=== PATIENT | female | born 1945 | race Caucasian/White ===

== ENCOUNTER 2021-04-08 20:04 | Inpatient (IN) | payer MEDICARE ==
[~2021-04-08] VITALS: Ht 154.9 cm; Wt 97.0 kg
[2021-04-08] MEDS ORDERED: normal saline 1000ML IV soln IV ONE (20:20)
[2021-04-08 20:44] LABS: BASOPHILS % (AUTO) 0.3 % (0-1); EOSINOPHILS % (AUTO) 0 % (0-6); HEMATOCRIT 42.7 % (35.0-45.0); HEMOGLOBIN 13.8 g/dl (12.0-16.0); LYMPHOCYTES # (AUTO) 0.7 X10'3 (1.1-4.8); LYMPHOCYTES % (AUTO) 6.6 % (21-51); MEAN CORPUSCULAR HEMOGLOBIN 33.3 PG (27.0-31.0); MEAN CORPUSCULAR HGB CONC 32.3 g/dL (33.0-36.5); MEAN CORPUSCULAR VOLUME 103.2 FL (78-98); MEAN PLATELET VOLUME 8.2 FL (7.4-10.4); MONOCYTES # (AUTO) 0.7 X10'3 (0-0.9); MONOCYTES % (AUTO) 6.1 % (2-12); NEUTROPHILS # (AUTO) 9.4 X10'3 (1.8-7.7); PLATELET COUNT 208 X10'3 (140-440); RED BLOOD COUNT 4.14 X10'6 (4.20-5.60); RED CELL DISTRIBUTION WIDTH 14.5 % (11.5-14.5); WHITE BLOOD COUNT 10.8 X10'3 (4.5-11.0)
[2021-04-08] MEDS ORDERED: temazepam 15mg capsule PO PRN (21:00)
[2021-04-08 21:13] LABS: CLARITY,URINE CLOUDY (Clear); COLOR,URINE YELLOW (Yellow); GLUCOSE, URINE NEGATIVE (Neg); KETONES,URINE 40 mg/dl (Neg); LEUKOCYTE ESTERASE ,URINE MODERATE (Neg); NITRITES, URINE NEGATIVE (Neg); OCCULT BLOOD,URINE LARGE (Neg); PH,URINE 5.5 (4.8-8.0); PROTEIN,URINE 100 mg/dl (Neg)
--- NOTE | 2021-04-08 21:14 | NUR ---
LYDIA ([facility]) - [phone]
[2021-04-08 21:22] LABS: ALANINE AMINOTRANSFERASE 52 U/L (12-78); ALBUMIN 3.3 G/DL (3.4-5.0); ALBUMIN/GLOBULIN RATIO 1.1 (1.1-1.5); ALKALINE PHOSPHATASE 77 IU/L (46-116); ANION GAP 16 (8-16); ASPARTATE AMINO TRANSFERASE 74 U/L (10-37); BILIRUBIN,TOTAL 1.1 MG/DL (0.1-1.0); BLOOD UREA NITROGEN 52 MG/DL (7-18); BUN/CREATININE RATIO 55.9 (6.6-38.0); CALCIUM 8.3 MG/DL (8.5-10.1); CHLORIDE 119 MMOL/L (99-107); CREATININE 0.93 MG/DL (0.40-0.90); GLUCOSE 128 MG/DL (70-104); POTASSIUM 3.6 MMOL/L (3.5-5.1); TOTAL CARBON DIOXIDE 23.8 MMOL/L (24-32); TOTAL PROTEIN 6.4 G/DL (6.4-8.2); eGFR 58 ML/MIN
[2021-04-08 21:24] LABS: UA COLLECTION TYPE NON-SPECIFIED; URINE AMPHETAMINE SCREEN NEGATIVE (Neg); URINE BARBITUATE SCREEN NEGATIVE (Neg); URINE BENZODIAZEPINES SCREEN NEGATIVE (Neg); URINE CANNABINOID SCREEN NEGATIVE (Neg); URINE COCAINE SCREEN NEGATIVE (Neg); URINE METHADONE SCREEN NEGATIVE (Neg); URINE OPIATE SCREEN NEGATIVE (Neg); URINE PHENCYCLIDINE SCREEN NEGATIVE (Neg)
[2021-04-08 21:24] LABS: CREATINE KINASE 2130 U/L (26-192)
[2021-04-08 21:26] LABS: ETHANOL < 0.010 GM/DL (0.0-0.010)
[2021-04-08 21:28] LABS: SODIUM 159 MMOL/L (135-145)
[2021-04-08 21:29] LABS: BACTERIA,URINE NONE SEEN /HPF (Neg); MUCUS STRANDS MODERATE /LPF (Neg); SQUAMOUS EPITHELIAL CELL,UR NONE SEEN /LPF (FEW); WBC,URINE 50-100 /HPF (0-4)
[2021-04-08] MEDS ORDERED: acetaminophen 325mg tablet PO PRN ×2 (22:05)
[2021-04-08] MEDS ORDERED: ondansetron/PF 4mg/2ml inj IV PRN (22:05)
[2021-04-08] MEDS ORDERED: morphine 2 MG/ML inj. syringe IV PRN (22:05)
[2021-04-08] MEDS ORDERED: potassium Cl 20 mEq SR tablet PO PRN (22:05)
[2021-04-08] MEDS ORDERED: magnesium 2GM in 50ml NS 50 ML IV PRN (22:05)
[2021-04-08] MEDS ORDERED: magnesium 4gm in 100ml NS 100 ML IV PRN (22:05)
[2021-04-08] MEDS ORDERED: HYDROcodone/acetaminophen 5mg/325mg tablet PO PRN (22:05)
[2021-04-08] MEDS ORDERED: potassium Cl 40MEQ/1/2NS 520ml 520 ML IV PRN ×2 (22:05)
[2021-04-08] MEDS: normal saline 1000ml 1,000 ML IV SCH (22:05)
[2021-04-08] MEDS ORDERED: magnesium Cl slow-release 64mg tablet PO PRN (22:05)
[2021-04-08] MEDS ORDERED: CefTRIAXone 2gm/D5W 50ml BAG 50 ML IV ONE (22:15)
[2021-04-08] MEDS ORDERED: SYN0.088T PO (22:56)
[2021-04-08] MEDS ORDERED: LISI20TA28 PO (22:56)
[2021-04-08] MEDS ORDERED: ATOR10TA87 PO (22:56)
[2021-04-08] MEDS ORDERED: VIT1TABL66 (22:58)
[2021-04-08] MEDS ORDERED: ASPI-1265 PO (22:58)
[2021-04-08] MEDS ORDERED: LORazepam 2 mg/ml vial IV PRN (23:35)
[2021-04-08] MEDS ORDERED: LORazepam 1 MG tablet PO PRN (23:35)
[2021-04-08 23:46] LABS: LIPASE < 50 U/L (73-393)
[2021-04-09] MEDS: potassium CL 20mEq in D5-1/2NS 1,000 ML IV SCH ×2 (00:28→14:01)
[2021-04-09 01:21] LABS: BASOPHILS % (AUTO) 0.3 % (0-1); EOSINOPHILS % (AUTO) 0 % (0-6); HEMOGLOBIN 12.5 g/dl (12.0-16.0); LYMPHOCYTES # (AUTO) 0.9 X10'3 (1.1-4.8); LYMPHOCYTES % (AUTO) 8.5 % (21-51); MEAN CORPUSCULAR HEMOGLOBIN 33.6 PG (27.0-31.0); MEAN CORPUSCULAR HGB CONC 32.9 g/dL (33.0-36.5); MEAN CORPUSCULAR VOLUME 102.2 FL (78-98); MEAN PLATELET VOLUME 7.9 FL (7.4-10.4); MONOCYTES # (AUTO) 0.6 X10'3 (0-0.9); MONOCYTES % (AUTO) 5.8 % (2-12); NEUTROPHILS # (AUTO) 9.1 X10'3 (1.8-7.7); NEUTROPHILS % (AUTO) 85.4 % (42-75); PLATELET COUNT 189 X10'3 (140-440); RED BLOOD COUNT 3.71 X10'6 (4.20-5.60); RED CELL DISTRIBUTION WIDTH 14.6 % (11.5-14.5); WHITE BLOOD COUNT 10.7 X10'3 (4.5-11.0)
[2021-04-09 01:50] LABS: ALANINE AMINOTRANSFERASE 51 U/L (12-78); ALBUMIN 2.7 G/DL (3.4-5.0); ALBUMIN/GLOBULIN RATIO 0.9 (1.1-1.5); ALKALINE PHOSPHATASE 53 IU/L (46-116); ASPARTATE AMINO TRANSFERASE 76 U/L (10-37); BILIRUBIN,TOTAL 0.7 MG/DL (0.1-1.0); BLOOD UREA NITROGEN 46 MG/DL (7-18); CALCIUM 7.6 MG/DL (8.5-10.1); CREATININE 0.73 MG/DL (0.40-0.90); GLUCOSE 124 MG/DL (70-104); MAGNESIUM 2.4 MG/DL (1.5-2.4); POTASSIUM 3.4 MMOL/L (3.5-5.1); TOTAL CARBON DIOXIDE 24.2 MMOL/L (24-32); TOTAL PROTEIN 5.6 G/DL (6.4-8.2); eGFR 77 ML/MIN
[2021-04-09 01:53] LABS: ANION GAP 12 (8-16); CHLORIDE 121 MMOL/L (99-107)
[2021-04-09 01:57] LABS: SODIUM 157 MMOL/L (135-145)
[2021-04-09] MEDS: normal saline 1000ml 1,000 ML IV SCH ×2 (04:45→11:25)
[2021-04-09] MEDS ORDERED: LEVO75TA PO (05:59)
[2021-04-09] MEDS ORDERED: CHOL100017 PO (05:59)
[2021-04-09 07:40] VITALS: BP 134/70
[2021-04-09] MEDS: K and/or MAG REPLACEMENT MC SCH ×2 (08:00→19:27)
[2021-04-09] MEDS: levoTHYROXINE 75mcg tablet PO SCH (09:06)
[2021-04-09] MEDS: lisinopril 20mg tablet PO SCH (09:07)
[2021-04-09] MEDS: atorvastatin 10mg tablet PO SCH (09:07)
[2021-04-09] MEDS: heparin, porcine 5000 units/ml vial SQ SCH ×2 (09:08→19:28)
[2021-04-09] MEDS: aspirin 81mg tab.chew PO SCH (09:09)
[2021-04-09 10:00] VITALS: BP 137/65
[2021-04-09] MEDS: potassium Cl 20 mEq SR tablet PO PRN ×3 (14:01→23:59)
--- NOTE | 2021-04-09 17:53 | NUR ---
PT SENT UP FROM ER WITH [facility] CATH, NO ORDER FOR IT. FC WAS DC NOW. PT TOLERATED WELL. WICK IN PLACE
[2021-04-09] MEDS: CefTRIAXone/D5W-Rocephin 1gm 50 ML IV SCH (17:59)
[2021-04-09 18:00] VITALS: BP 133/70
--- NOTE | 2021-04-09 18:34 | NUR ---
Problems reprioritized. Patient report given, questions answered & plan of care reviewed with BERTHA ANNE.
--- NOTE | 2021-04-09 18:35 | NUR ---
Patient in room ORTHO 4009. I have received report from Rhiannon ANNE and had the opportunity to ask questions and assume patient care.
[2021-04-09 22:00] VITALS: BP 132/78
--- NOTE | 2021-04-10 00:12 | NUR ---
[place] catheter taken out in afternoon. Assisted patient to the commode, patient had incontinent episode while transferring so unable to measure. Bladder scanned once back into bed, 184mls. Will continue to monitor patient for voiding.
[2021-04-10 00:15] VITALS: BP_SYST 120; BP_SYST 124; BP_SYST 133; BP_DIAS 70; BP_DIAS 71; BP_DIAS 75
[2021-04-10] MEDS ORDERED: bisacodyl 10mg suppository rectal RC PRN (01:15)
[2021-04-10] MEDS ORDERED: magnesium hydroxide 30ml (MOM) UD suspension PO PRN (01:15)
--- NOTE | 2021-04-10 06:15 | NUR ---
Problems reprioritized. Patient report given, questions answered & plan of care reviewed with Rhiannon ANNE.
[2021-04-10 06:29] LABS: BASOPHILS % (AUTO) 0.3 % (0-1); EOSINOPHILS % (AUTO) 0.7 % (0-6); HEMATOCRIT 39.2 % (35.0-45.0); HEMOGLOBIN 12.6 g/dl (12.0-16.0); LYMPHOCYTES # (AUTO) 1.3 X10'3 (1.1-4.8); LYMPHOCYTES % (AUTO) 20.5 % (21-51); MEAN CORPUSCULAR HEMOGLOBIN 33.1 PG (27.0-31.0); MEAN CORPUSCULAR HGB CONC 32.1 g/dL (33.0-36.5); MEAN CORPUSCULAR VOLUME 103.2 FL (78-98); MONOCYTES # (AUTO) 0.4 X10'3 (0-0.9); MONOCYTES % (AUTO) 6.3 % (2-12); NEUTROPHILS # (AUTO) 4.7 X10'3 (1.8-7.7); NEUTROPHILS % (AUTO) 72.2 % (42-75); PLATELET COUNT 168 X10'3 (140-440); RED CELL DISTRIBUTION WIDTH 14.6 % (11.5-14.5); WHITE BLOOD COUNT 6.5 X10'3 (4.5-11.0)
[2021-04-10 06:30] VITALS: BP 113/69
--- NOTE | 2021-04-10 06:47 | NUR ---
Patient in room ORTHO 4009. I have received report from BERTHA ANNE and had the opportunity to ask questions and assume patient care.
[2021-04-10 07:03] LABS: ALANINE AMINOTRANSFERASE 49 U/L (12-78); ALBUMIN 2.5 G/DL (3.4-5.0); ALBUMIN/GLOBULIN RATIO 0.9 (1.1-1.5); ALKALINE PHOSPHATASE 65 IU/L (46-116); ANION GAP 7 (8-16); ASPARTATE AMINO TRANSFERASE 64 U/L (10-37); BILIRUBIN,TOTAL 0.7 MG/DL (0.1-1.0); BLOOD UREA NITROGEN 26 MG/DL (7-18); BUN/CREATININE RATIO 39.4 (6.6-38.0); CALCIUM 8.1 MG/DL (8.5-10.1); CHLORIDE 116 MMOL/L (99-107); CREATININE 0.66 MG/DL (0.40-0.90); GLUCOSE 91 MG/DL (70-104); MAGNESIUM 2.2 MG/DL (1.5-2.4); POTASSIUM 4.3 MMOL/L (3.5-5.1); SODIUM 150 MMOL/L (135-145); TOTAL CARBON DIOXIDE 27.3 MMOL/L (24-32); TOTAL PROTEIN 5.3 G/DL (6.4-8.2); eGFR 87 ML/MIN
[2021-04-10] MEDS: K and/or MAG REPLACEMENT MC SCH (07:49)
[2021-04-10] MEDS: atorvastatin 10mg tablet PO SCH (07:51)
[2021-04-10] MEDS: levoTHYROXINE 75mcg tablet PO SCH (07:51)
[2021-04-10] MEDS: aspirin 81mg tab.chew PO SCH (07:51)
[2021-04-10] MEDS: heparin, porcine 5000 units/ml vial SQ SCH (07:52)
[2021-04-10] MEDS: lisinopril 20mg tablet PO SCH (07:52)
[2021-04-10] MEDS: CefTRIAXone/D5W-Rocephin 1gm 50 ML IV SCH (07:58)
[2021-04-10] MEDS ORDERED: docusate sod 100mg capsule PO SCH (08:00)
[2021-04-10] MEDS ORDERED: NYSTATIN CREAM - 30GM TUBE TP SCH (08:00)
[2021-04-10 10:24] VITALS: BP 113/56
--- NOTE | 2021-04-10 11:36 | NUR ---
PT REFUSING MOM
[2021-04-10] MEDS ORDERED: SULF1TAB49 PO (11:55)
--- NOTE | 2021-04-10 14:43 | NUR ---
PT DISCHARGED IN STABLE CONDITION. LEFT FACILITY IN PRIVATE VEHICLE WITH SISTER. IV DC [facility] INTACT. FOLLOW UP INSTRUCTIONS GIVEN, ALL QUESTIONS ANSWERED. Addendum: 04/10/21 at 1445 by Ivory Cordon RN Amended: Links added.
== END 2021-04-10 14:40 | disposition home health service (06) | DRG 690 ==
LOC: ER 20:07 → ED HOLD 22:09 → ORTHO 4S 04-09 08:14
PROVIDERS: ADMIT Internal Medicine; ATTEND Internal Medicine
DX: N39.0 Urinary tract infection, site not specified (principal); E87.0 Hyperosmolality and hypernatremia; I10 Essential (primary) hypertension; E86.0 Dehydration; E78.5 Hyperlipidemia, unspecified; Z20.822 Contact with and (suspected) exposure to COVID-19; E03.9 Hypothyroidism, unspecified; E78.00 Pure hypercholesterolemia, unspecified; R19.00 Intra-abdominal and pelvic swelling, mass and lump, unspecified site; Z60.2 Problems related to living alone; R73.03 Prediabetes; K76.0 Fatty (change of) liver, not elsewhere classified; D48.1 Neoplasm of uncertain behavior of connective and other soft tissue; W01.0XXA Fall on same level from slipping, tripping and stumbling without subsequent striking against object, initial encounter; T79.6XXA Traumatic ischemia of muscle, initial encounter; N20.0 Calculus of kidney; Z66 Do not resuscitate; Z79.82 Long term (current) use of aspirin; Z79.899 Other long term (current) drug therapy; Y93.89 Activity, other specified; Y92.098 Other place in other non-institutional residence as the place of occurrence of the external cause; Y99.8 Other external cause status; Z72.89 Other problems related to lifestyle
CPT/HCPCS: 36415; 70450; 71045; 71250; 73564; 74176; 80053; 80305; 80320; 81001; 82550; 83605; 83690; 83735; 84145; 84443; 85025; 87040; 87081; 87088; 87635; 92508; 92616; 93005; 96365; 97110; 97161; 97530; 99285; C9803; G0378; J0696; J1644; J3480; J7030